=== PATIENT | male | born 1995 ===

== ENCOUNTER 2018-01-24 11:07 | Emergency (ER) | payer BC ==
[~2018-01-24 11:07] MED LIST: AMOX500T10 PO; AZIT-18 PO; BENZ200C15 PO; DICY-42 PO; ONDA4TAB97 PO
--- NOTE | 2018-01-24 11:08 | ER Report ---
History and Physical Time Seen By MD: 11:12 HPI/ROS CHIEF COMPLAINT: Headache HISTORY OF PRESENT ILLNESS: Patient is a 22-year-old male with exertional-type headache worse with running. States it's mostly left-sided it feels like a throb. No associated nausea or vomiting. No neck stiffness or pain. No fevers or chills. States he's been having episodic headaches for the past few months that are new. He is never had any imaging of his brain at this point. Denies any other significant past medical history. Denies trauma or head injury. REVIEW OF SYSTEMS: Constitutional: No fever, no chills. Eyes: No discharge. ENT: No sore throat. Cardiovascular: No chest pain, no palpitations. Respiratory: No cough, no shortness of breath. Gastrointestinal: No abdominal pain, no vomiting. Genitourinary: No hematuria. Musculoskeletal: No back pain. Skin: No rashes. Neurological: Headache Allergies: Coded Allergies: No Known Drug Allergies (Unverified , 01/24/18) Home Meds Active Scripts Benzonatate (BENZONATATE) 200 Mg Capsule, 200 MG PO TID PRN for COUGH, #15 CAP Prov:EVELYN MAIN PA-C 07/30/16 Azithromycin 250 Mg Tab (AZITHROMYCIN 250 MG TAB) 250 Mg Tablet, 1 TAB PO QDAY, #6 TAB Take 2 tabs today and then 1 tab a day until gone. Prov:EVELYN MAIN PA-C 07/30/16 Reported Medications Amoxicillin 500 Mg Tab (AMOXICILLIN 500 MG TAB) 500 Mg Tablet, 1 TAB PO Q12H, #20 TAB 07/30/16 Past Medical/Surgical History Noncontributory Constitutional Vital Sign - Last 24 Hours 01/24/18 11:13 Temp 97.9 Pulse 45 Resp 14 B/P (MAP) 135/80 Pulse Ox 95 O2 Delivery Room Air Physical Exam General/Constitutional: Patient is awake, alert, nontoxic and in no acute respiratory distress. Head: Normocephalic and atraumatic. Eyes: Conjunctival clear, Pupils are equal and reactive to light. Extraocular m uscles are intact and symmetrical. Sclera are clear and anicteric. Ears:External canals are clear. Tympanic membranes are clear with normal landmarks and light reflex. Nares: No rhinorrhea or bleeding. Turbinates are pink and moist. Oropharyngeal: Mucous membranes are moist. Neck: Supple, no adenopathy. Cardiovascular: Heart is regular rate and rhythm without audible murmurs, rubs or gallops. Pulmonary: Lungs are clear to auscultation bilaterally. There are no wheezes, rales, or rhonchi. Chest rise is symmetrical Abdomen: Soft, nontender, no guarding or peritoneal signs. Extremities: No gross deformities, No peripheral cyanosis. Able to move all 4 extremities. Neuro: Alert and oriented X3, Cranial nerves 2 thru 12 are intact and symmetrical. Skin: No rashes, skin is warm dry and well perfused. Medical Decision Making ED Course/Re-evaluation ED Course 01/24/2018 12:22:01 pm at this time will be CT of the head we will give oral Naprosyn and Reglan Re-evaluation 01/24/2018 12:38:14 pm symptoms essentially unchanged. CT scan shows no acute abnormalities however there is incidental arachnoid cyst in the posterior fossa. This finding was discussed with the patient. Decision to Disposition Date: Jan 24, 2018 Decision to Disposition Time: 12:38 Depart Departure Latest Vital Signs Vital Signs Date Time Temp Pulse Resp B/P (MAP) Pulse Ox O2 Delivery O2 Flow Rate FiO2 01/24/18 11:13 97.9 45 14 135/80 95 Room Air Impression: Primary Impression: Headache Condition: Condition Unchanged Disposition: HOME OR SELF-CARE Referrals: ÁNGEL MELGOZA MD If your headaches persist into next week he should schedule a follow-up appointment with Dr. Melgoza who is a primary care provider and can further working up as an outpatient for the headaches. New Scripts Ondansetron Hcl (ZOFRAN) 4 Mg Tablet 4 MG PO Q8H for Nausea, #15 TAB 0 Refills Prov: ESTEVAN LOPEZ MD 01/24/18 Patient Instructions: Acute Headache (DC) Additional Instructions: If your headache persists into next week, you were given the number to call and set up a primary care provider here in [facility] and further working up as an outpatient for these headaches. Problem Qualifiers Primary Impression: Headache Headache type: unspecified Headache chronicity pattern: acute headache Intractability: not intractable Qualified Codes: R51 - Headache ESTEVAN LOPEZ MD Jan 24, 2018 11:08
[2018-01-24 11:13] VITALS: BP 135/80
[2018-01-24] MEDS ORDERED: NAPROXEN 500 MG TAB PO ONE (11:35)
[2018-01-24] MEDS ORDERED: METOCLOPRAMIDE 10 MG TAB PO ONE (11:35)
--- NOTE | 2018-01-24 12:15 | RADIOLOGY IMAGING REPORT ---
FACILITY: PATIENT NAME: Luis Obrien : 1995 MR: [id number] V: [id number] EXAM DATE: ORDERING PHYSICIAN: ESTEVAN LOPEZ TECHNOLOGIST: Location: [facility] Patient: Luis Obrien : 1995 Visit/Account:[id number] Date of Sevice: 01/24/[address] scan without contrast HISTORY: Left-sided headache COMPARISONS: None TECHNIQUE: Non-contrast head CT was performed with sagittal and coronal reformations. One of the following dose optimization techniques was utilized in the performance of this exam: autom ated exposure control; adjustment of the mA and/or kV according to patient size; or use of iterative reconstruction technique. Specific details can be referenced in the facility's radiology CT exam ope rational policy. FINDINGS: There is no intracranial hemorrhage or midline shift. Ventricular volumes are upper limits normal in size. The basal cisterns, sanon-white differentiation, and convexity sulci are maintained. Normal orb ital soft tissues. Arachnoid cyst eccentric to the left in the posterior fossa measures 2.4 cm AP by 2.7 cm craniocaudad. The mastoid air cells are clear. The paranasal sinuses are clear. The osseous structures are normal . IMPRESSION: No acute intracranial abnormality. Arachnoid cyst in the posterior fossa measures 2.4 cm AP by 2.7 cm craniocaudad. Report Dictated By: Epi Shahid MD at 01/24/2018 12:09 PM Report E-Signed By: Epi Shahid MD at 01/24/2018 12:12 PM WSN:[id number]
[2018-01-24] MEDS ORDERED: ONDA4TAB97 PO (12:41)
[2018-01-24] MEDS ORDERED: LOR5/325 PO (12:41)
== END 2018-01-24 12:50 | disposition home or self-care (01) ==
LOC: ER 11:10
DX: R51 Headache (principal)
CPT/HCPCS: 70450; 99284; J8597